=== PATIENT | male | born 1955 | race Caucasian/White ===

== ENCOUNTER 2023-02-05 13:32 | Emergency (ER) | payer MEDICAID, SELFPAY ==
[2023-02-05 13:33] VITALS: BP 143/89; PULSE 56; RESP 18; TEMP 36.4; O2SAT 98; BMI 25.5
--- NOTE | 2023-02-05 14:11 | EDS_ITS ---
HPI History of Present Illness Chief Complaint: Abd Pain Narrative Narrative: 67-year-old male here for left-sided abdominal pain. The patient states he has had 2 days of left lower quad abdominal pain that is nonradiating. Denies any flank pain. Denies urinary complaints. Denies any diarrhea. Denies fever or vomiting. Denies history abdominal surgeries. Notes history hypertension. Denies chest pain or shortness of breath PFSH [facility] Medical History (Updated 02/05/23 @ 15:[address] Mohsen Mahoney, DO) Hypertension Home Medications Bp Med 10/18/13 [History Last Taken Unknown] Cholesterol Med 10/18/13 [History Last Taken Unknown] Gout 10/18/13 [History Last Taken Unknown] famotidine 20 mg tablet 20 mg PO BID ##6 10/18/13 [Rx Last Taken Unknown] amoxicillin 500 mg capsule 500 mg PO Q8H ##30 08/02/14 [Rx Last Taken Unknown] hydrocodone-acetaminophen 5-325mg 5mg-325mg 1 - 2 tab PO Q4H PRN PRN Pain ##12 11/02/14 [Rx Last Taken Unknown] naproxen 500 mg tablet 500 mg PO BID #20 tabs 11/02/14 [Rx Last Taken Unknown] Allergy/AdvReac Type Severity Reaction Status Date / Time No Known Allergies Allergy Verified 11/02/14 17:06 Surgical History no surgical history Social History Smoking Status: Never smoker ROS ROS ED ROS Narrative Constitutional: Denies fever HEENT: Denies sore throat Neck: Denies neck pain Cardiovascular: Denies chest pain, syncope Respiratory: Denies shortness of breath GI: Endorses abdominal pain : Denies changes in urinary habits Musculoskeletal: Denies muscle or joint pain Neurologic: Denies numbness weakness or loss of sensation Skin denies rash EXAM Physical Exam Narrative Exam Narrative: Nursing triage notes reviewed, Vital signs reviewed Constitutional: please see mdm HENT: MMM Eyes: Pupils equal round and reactive to light, Extraocular muscles intact Neck: No stridor, no JVD, full neck ROM Lungs: Clear to auscultation, No wheezing or rales. No increased work of breathing, no conversational dyspnea, no accessory muscle use, no nasal flaring. No respiratory distress noted Heart: Regular rate and rhythm, No murmurs, No rubs and No gallops, 2+ distal pulses (radial, femoral, posterior tibial) in all extremities Abdomen: Soft, left lower quadrant TTP but no rigidity, rebound or guarding, no obvious peritoneal signs, no palpable pulsatile abdominal masses, no auscultated abdominal bruit : No CVAT Extremities: No edema Neuro: No focal neurological deficits, cranial nerves II through XII intact, 5/5 strength in all extremities. Intact sensation to light touch in all extremities, 2+ reflexes bilateral patella dens. Normal gait. No ataxia. Skin: No rash or lesions noted Const Vital Signs: 02/05/23 13:33 Temperature 97.6 F L Temperature Source Temporal Pulse Rate 56 L Respiratory Rate 18 Blood Pressure 143/89 H Blood Pressure Mean 107 Pulse Ox 98 Oxygen Delivery Method Room Air MDM MDM MDM Narrative Medical decision making narrative: Chief Complaint: Abdominal pain External records reviewed: No recent CT scans abdomen pelvis noted MDM: The patient was hemodynamically stable, afebrile, nontoxic-appearing. Abdominal exam with left lower quadrant pain. I considered the following differential diagnosis: Acute surgical pathology of the abdomen or pelvis, diverticulitis, pancreatitis, hepatobiliary pathology, gastritis, diverticulitis, AAA, nephrolithiasis, pyelonephritis I obtained a broad lab and imaging work-up to further elucidate etiology patient complaint. He was treated with IV morphine, Toradol for pain. Given IV fluids for rehydration and given Zofran for nausea. Labs with evidence of leukocytosis suggestive of systemic inflammation, no evidence of endorgan hypoperfusion, electrolyte abnormalities, pancreatitis or hepatobiliary pathology. Factors affecting care: GERD Social determinants of health: History obtained from others: Shared decision making: I will have a discussion with the patient and or visitors regarding risk/benefits of further testing or admission. They will be made aware of of the risk/benefits inherent in this decision they will be given the opportunity to voice understanding. Consults: Lab Data Attestation: I reviewed the patient's lab results. Lab results narrative: CBC with leukocytosis suggestive of systemic inflammation, no thrombocytopenia BMP with mild hyponatremia, no significant electrolyte abnormalities, no anion gap to suggest endorgan hypoperfusion, no acute kidney injury LFTs show mild hyperbilirubinemia otherwise no evidence of obstructive hepatobiliary pathology Lipase is wnl indicating no pancreatic inflammation. Urine without evidence of infection Labs: Laboratory Results - last 24 hr 02/05/23 02/05/23 02/05/23 14:05 14:05 14:05 WBC 15.0 H RBC 5.11 Hgb 16.7 H Hct 49.6 MCV 97.1 H MCH 32.7 H MCHC 33.7 RDW Std Deviation 49.2 H RDW Coeff of Sky 13.7 Plt Count 194 MPV 10.6 Immature Gran % (Auto) 0.500 Neut % (Auto) 77.0 H Lymph % (Auto) 9.7 L [place] % (Auto) 11.3 H Eos % (Auto) 1.1 Baso % (Auto) 0.4 Absolute Neuts (auto) 11.6 H Absolute Lymphs (auto) 1.45 Nucleated RBC % 0 Platelet Estimate ADEQUATE RBC Morphology NORM C+C Sodium 135 L Potassium 3.6 Chloride 101 Carbon Dioxide 30.0 Anion Gap 4 L BUN 21 H Creatinine 1.24 Estim Creat Clear Calc 48.41 Est GFR (MDRD) Af Amer 75 Est GFR (MDRD) Non-Af 62 BUN/Creatinine Ratio 16.9 Glucose 91 Calcium 10.0 Total Bilirubin 1.20 H AST 21 ALT 31 Alkaline Phosphatase 67 Total Protein 7.9 Albumin 3.9 Globulin 4.0 Albumin/Globulin Ratio 1.0 Lipase 36 Urine Color Urine Clarity Urine pH Ur Specific [place] Urine Protein Urine Glucose (UA) Urine Ketones Urine Occult Blood Urine Nitrite Urine Bilirubin Urine Urobilinogen Ur Leukocyte Esterase Urine RBC Urine WBC Ur Squamous Epith Cells Urine Bacteria Urine Mucus 02/05/23 14:13 WBC RBC Hgb Hct MCV MCH MCHC RDW Std Deviation RDW Coeff of Sky Plt Count MPV Immature Gran % (Auto) Neut % (Auto) Lymph % (Auto) [place] % (Auto) Eos % (Auto) Baso % (Auto) Absolute Neuts (auto) Absolute Lymphs (auto) Nucleated RBC % Platelet Estimate RBC Morphology Sodium Potassium Chloride Carbon Dioxide Anion Gap BUN Creatinine Estim Creat Clear Calc Est GFR (MDRD) Af Amer Est GFR (MDRD) Non-Af BUN/Creatinine Ratio Glucose Calcium Total Bilirubin AST ALT Alkaline Phosphatase Total Protein Albumin Globulin Albumin/Globulin Ratio Lipase Urine Color Yellow Urine Clarity Clear Urine pH 7.0 Ur Specific [place] 1.010 Urine Protein 30 H Urine Glucose (UA) Normal Urine Ketones Negative Urine Occult Blood Negative Urine Nitrite Negative Urine Bilirubin Negative Urine Urobilinogen 1 H Ur Leukocyte Esterase 25 H Urine RBC 0 SEEN Urine WBC 5-10 SEEN Ur Squamous Epith Cells 0 SEEN Urine Bacteria 0 SEEN Urine Mucus 0 SEEN Discharge Plan Triage Chief Complaint: Abd Pain ED Provider: Mohsen Mahoney Dx/Rx/DC Orders Clinical Impression: Abdominal pain, Acute hyponatremia, Hyperbilirubinemia Prescriptions: No Action Bp Med Cholesterol Med Gout famotidine 20 MG tablet 20 mg PO BID Qty: 6 0RF amoxicillin 500 MG capsule 500 mg PO Q8H Qty: 30 0RF hydrocodone-acetaminophen 1 TABLET tablet 1 - 2 tab PO Q4H PRN PRN (Reason: Pain) Qty: 12 0RF naproxen 500 MG tablet 500 mg PO BID Qty: 20 0RF Primary Care Provider: Care Physician,No Primary Referrals: Care Physician,No Primary [Primary Care Provider] -
[2023-02-05 14:13] LABS: Absolute Lymphocyte Count 1.45 X10^3/uL (0.83-4.51); Absolute Neutrophil Count 11.6 X10^3/uL (2.0-7.7); Basophil# 0.06 X10^3/uL; Basophil% 0.4 % (0-1); Eosinophil# 0.16 X10^3/uL; Eosinophils% 1.1 % (0-5); Hematocrit 49.6 % (40-54); Hemoglobin 16.7 g/dL (13.0-16.5); Lymphocyte # 1.45 X10^3/ul (0.83-4.51); Lymphocyte % 9.7 % (19-41); Mean Corp Hgb Conc 33.7 g/dL (32-36); Mean Corpuscular Hgb 32.7 pg (27.0-32.0); Mean Corpuscular Volume 97.1 fL (80-94); Mean Platelet Vol. 10.6 fl (6.2-12.0); Monocyte% 11.3 % (0-10); NRBC Flagged by Analyzer 0 % (0-5); Neutrophil # 11.58 X10^3/uL (2.7-7.7); POSITIVE DIFFERENTIAL YES; Platelet Count 194 K/mm3 (150-450); RBC Distribution Width CV 13.7 % (11.6-14.6); RBC Distribution Width SD 49.2 fl (35.1-43.9); Red Blood Count 5.11 M/mm3 (4.6-6.2)
[2023-02-05 14:14] LABS: Differential Indicated SCAN CRITERIA MET
[2023-02-05 14:24] LABS: Bacteria 0 SEEN /hpf (None Seen); Mucous, Urine 0 SEEN /hpf (<or=2+); Red Blood Cells-Urine 0 SEEN /hpf (0-5); Squamous Epithelial Cells - UA 0 SEEN /hpf (0-5)
[2023-02-05 14:26] LABS: Color, Urine Yellow (Yellow); Glucose, Dipstick Normal (Normal); Ketone-Dipstick Negative (Negative); Leukocyte Esterase-Dipstick 25 /ul (Negative); Nitrite-Dipstick Negative (Negative); Occult Blood-Urine Negative /ul (Negative); Protein-Dipstick 30 mg/dl (Negative); Urine Bilirubin Dipstick Negative (Negative); Urine Clarity Clear (Clear); Urine Urobilinogen 1 mg/dl (Normal)
[2023-02-05 14:29] LABS: White Blood Cells 5-10 SEEN /hpf (0-5)
[2023-02-05 14:29] LABS: AST(SGOT) 21 U/L (15-37); Alanine Aminotransfer ALT/SGPT 31 U/L (16-61); Albumin, Serum 3.9 g/dL (3.2-5.0); Alkaline Phosphatase 67 U/L (45-117); Anion Gap 4 (5-15); BUN 21 mg/dL (7-18); BUN/Creat Ratio 16.9 RATIO (10-20); Chloride 101 mmol/L (98-107); Creatinine, Serum 1.24 mg/dL (0.70-1.30); EST Glomerular Filtration Rate 62 mL/min (>60); Est Glom Filt Rate - Afr Amer 75 mL/min (>60); Estimated Creatinine Clearance 48.41 ml/min; Glucose 91 mg/dL (74-106); Potassium 3.6 mmol/L (3.5-5.1); Protein, Total 7.9 g/dL (6.4-8.2); Sodium Level 135 mmol/L (136-145)
--- NOTE | 2023-02-05 14:33 | CT_ITS ---
INDICATION: Left lower quadrant abdominal pain -- IV PO Contrast EXAMINATION: CT Abdomen And Pelvis W/ Contrast Injection TECHNIQUE: Helically acquired images were obtained of the abdomen and pelvis after IV contrast. A radiation dose optimization technique was used for this scan. IV Contrast dosage and agent: Oral and amp; IV Gastrografin and amp; 100mL Isovue-300 Oral contrast: None. COMPARISON: None. FINDINGS: Visualized lung bases: Unremarkable Liver: Unremarkable Gallbladder: Few small intraluminal stones seen. Spleen: Unremarkable Pancreas: Unremarkable Adrenal Glands: Unremarkable Kidneys: Multiple bilateral simple renal cysts, largest measuring 5.8 cm in the right mid renal pole. No follow-up necessary. Vasculature: Moderate aortoiliac atherosclerotic disease. GI Tract: Short segment slightly asymmetric bowel wall thickening of the proximal sigmoid colon with surrounding mesenteric fat stranding. Lymphadenopathy: None Peritoneum: No ascites. Bladder: Unremarkable Reproductive organs: The prostate is mildly enlarged. Bones/Soft tissues: There are diffuse degenerative changes of the spine. CT/Abdomen/Pelvis WITH Contrast IMPRESSION: Acute sigmoid diverticulitis. No focal fluid collection or free air. Due to slight asymmetry of wall thickening, recommend colonoscopy after acute infection has resolved to rule out underlying malignancy. Mild prostatomegaly. Correlate with PSA levels. Cholelithiasis. Electronically Signed: Devonte Andres MD at 17:01 EDT ,
[2023-02-05 14:53] LABS: Platelet Estimate ADEQUATE (ADEQ); Red Cell Morphology NORM C+C NORMAL (NORM C&C)
[2023-02-05 15:05] LABS: Lipase 36 U/L (13-75)
[2023-02-05] MEDS: Morphine 4 MG/ML Syringe IV (15:55)
[2023-02-05] MEDS: Ketorolac 15 MG/ML Vial IV (15:55)
[2023-02-05] MEDS: Ondansetron 4 MG/2 ML Vial IV (15:55)
[2023-02-05] MEDS: 0.9% Normal Saline 1,000 ML 999 ML IV (15:56)
[2023-02-05] MEDS: Amox/Clavulanate 875 MG Tablet PO (17:14)
[2023-02-05 17:31] VITALS: BP 139/58; PULSE 59; RESP 16; O2SAT 98
[2023-02-08 11:56] LABS: Pathologist Review Reviewed
== END 2023-02-05 17:33 | disposition home or self-care (01) ==
PROVIDERS: Emergency Provider Emergency Medicine; Referring Provider Emergency Medicine; Visit Provider Emergency Medicine
DX: R10.9 Unspecified abdominal pain (principal); E87.1 Hypo-osmolality and hyponatremia; K21.9 Gastro-esophageal reflux disease without esophagitis; E80.6 Other disorders of bilirubin metabolism; I10 Essential (primary) hypertension
CPT/HCPCS: 74177; 80053; 81001; 83690; 85025; 99283; Q9967; J2405

== ENCOUNTER 2023-04-08 13:35 | Emergency (ER) | payer MEDICAID, SELFPAY ==
[2023-04-08 13:36] VITALS: BP 171/100; PULSE 55; RESP 18; TEMP 36.6; O2SAT 98; BMI 25.9
--- NOTE | 2023-04-08 13:51 | ED.VIS.CHEST ---
HPI History of Present Illness Chief Complaint: Chest Pain Detail of Chief Complaint: Initially right lower back pain and anterior right chest pain. Presently a Informant: patient Onset/Context/Timing Onset: Yesterday Timing: Continuous Quality: Positive for Pain Location: Right Parasternal Current Severity: Mild Maximum Severity: Moderate Worsened By: Nothing Relieved By: Nothing Associated Symptoms: Negative for Nausea, Vomiting, Diaphoresis, Dyspnea, Cough, Fever, Lightheadedness, Acid Reflux or Palpitations Narrative Narrative: Patient is a 67-year-old male with history of hypertension, hypercholesterolemia and based on medication GERD/peptic ulcer disease who presents with right-sided chest pain. Patient is a poor informant because he has a limited vocabulary and does not understand the meaning of many words that were asked. For example when asked to describe the pain using adjectives or descriptive words he looked at me and responded I am from [place] . Patient states she was seen 4 months ago for left lower quadrant pain and was told he was hooked up to a machine and then let go. He questioned why the nurse was placing him on a monitor. Prior Similar Symptoms: No CVD Risk Factors: Positive for Hypertension and Hypercholesterolemia; Negative for Diabetes or Family History 1' </=55 (His response to family history of cardiac disease was I am from [place] .) PE Risk Factors: Negative for Recent Travel/Surgery, Recent Immobilization, Prior DVT or PE, Cancer, OCP + Smoking + >/=35 or - TAD Risk Factors: Positive for Hypertension; Negative for Marfan's Syndrome or Family History [facility] Medical History (Updated 04/08/23 @ 15:[address] Jamie Magana MD) HLD (hyperlipidemia) Hypertension Home Medications Bp Med 10/18/13 [History Last Taken Unknown] Cholesterol Med 10/18/13 [History Last Taken Unknown] Gout 10/18/13 [History Last Taken Unknown] famotidine 20 mg tablet 20 mg PO BID ##6 10/18/13 [Rx Last Taken Unknown] amoxicillin 500 mg capsule 500 mg PO Q8H ##30 08/02/14 [Rx Last Taken Unknown] hydrocodone-acetaminophen 5-325mg 5mg-325mg 1 - 2 tab PO Q4H PRN PRN Pain ##12 11/02/14 [Rx Last Taken Unknown] naproxen 500 mg tablet 500 mg PO BID #20 tabs 01/16/15 [Rx Last Taken Unknown] amoxicillin 875 mg-potassium clavulanate 125 mg tablet 1 tab PO BID 7 days #14 tabs 02/05/23 [Rx Last Taken Unknown] Allergy/AdvReac Type Severity Reaction Status Date / Time No Known Allergies Allergy Verified 11/02/14 17:06 Social History (Updated 04/08/23 @ 13:[address] Jamie Magana MD) household members: none Smoking Status: Never smoker substance use type: does not use ROS ROS ED Constitutional Constitutional ED: Denies chills or fever(s) Eyes Eyes: Reports none ENT ENT ED: Reports rhinorrhea; Denies sore throat Cardiovascular Cardiovascular: Reports as per HPI; Denies orthopnea or paroxysmal nocturnal dyspnea Respiratory/Chest Respiratory/Chest: Reports cough; Denies dyspnea, dyspnea on exertion, orthopnea or paroxysmal nocturnal dyspnea Gastrointestinal Gastrointestinal: Denies abdominal pain, melena, nausea, vomiting or other Musculoskeletal Musculoskeletal: Reports back pain; Denies arthralgias, myalgias or neck pain Integumentary Denies rash Neurologic Neurologic: Denies paresthesias Hematologic/Lymphatic Hematologic/Lymphatic: Denies easy bleeding or easy bruising EXAM Physical Exam Const Vital Signs: 04/08/23 13:36 04/08/23 13:57 04/08/23 13:57 Temperature 97.8 F Temperature Source Temporal Pulse Rate 55 L 52 L Respiratory Rate 18 14 Respiratory Effort Normal Non-Labored Blood Pressure 171/100 H 173/94 H Blood Pressure Mean 123 120 Pulse Ox 98 97 Oxygen Delivery Method Room Air Room Air Positive well nourished, well developed and unkempt; Negative for obese, cachectic or contractures General Appearance ED: unkempt and well developed; Negative for cachectic, contractures or pallor Nutritional Appearance: Negative for cachectic or obese HEENT Reports TM's clear and moist mucous membranes normocephalic and atraumatic Tympanic Membrane ED: Yes TM's clear Eyes PERRL and EOMs intact bilaterally General Eye ED: Negative for pale conjunctiva or scleral icterus Neck no lymphadenopathy, supple and no JVD Chest Wall inspection of chest normal and palpation of chest normal Resp normal respiratory effort and clear to auscultation bilaterally Resp Narrative: There is no pain palpation of the chest. Cardio regular rate, regular rhythm, S1 normal heart sound, S2 normal heart sound and no murmurs GI normal to inspection, nondistended, normoactive bowel sounds, soft to palpation, non-tender, non-distended and no masses; Negative for hepatosplenomegaly Back/Spine no CVA tenderness Extremity normal to inspection General Extremety ED: Negative for edema or pulses abnormal General Extremity: Negative for edema or pulses abnormal Neuro oriented x3, CN's II-XII intact bilaterally and no sensory deficits noted Sensorium / Orientation: awake and alert Motor Exam: strength 5/5 throughout Psych mental status grossly normal Appearance: unkempt Skin no rashes or lesions noted and no wounds General Skin Exam: Negative for jaundice or pallor MDM MDM MDM Narrative Medical decision making narrative: Since patient has 2 risk factors of cardiac disease and is a poor informant because of issues with literacy will obtain EKG, chest x-ray and troponin to determine if this is cardiac or noncardiac pain and will obtain a CBC but since he appears pale to rule out anemia. With a nonischemic EKG and normal troponin with greater than 24 hours of pain cardiac etiology has been ruled out. Lab Data Attestation: I reviewed the patient's lab results. Lab results narrative: CBC is unremarkable. Troponin is normal with greater than 24 hours of pain. Labs: Laboratory Results - last 24 hr 04/08/23 04/08/23 14:01 14:01 WBC 8.2 RBC 5.00 Hgb 16.4 Hct 47.1 MCV 94.2 H MCH 32.8 H MCHC 34.8 RDW Std Deviation 45.1 H RDW Coeff of Sky 13.2 Plt Count 215 MPV 10.5 Troponin I High Sens 16 Radiography Chest X-Ray - ED: 2 View and Read by ED Physician (2 view chest x-ray revealed no acute process per per my independent read. Cardiac silhouette and size normal. Perihilar region normal. Lung parenchyma normal. Osseous structures are unremarkable.) Diagnostic Testing: Clinical Impression(s) from Imaging Studies Chest X-Ray 04/08/23 14:20 IMPRESSION: There are no acute findings. Electronically Signed: Franklin Cooper MD at 14:55 EDT , EKG Initial EKG: Attestation: I personally reviewed and interpreted this EKG as follows: Interpretation: Sinus Bradycardia (Rate is 49. MI interval is 198 ms per cures duration 98 ms. QT duration 470 ms. Gates is normal. The EKG is suggestive of LVH otherwise unremarkable.) Differential Diagnosis Chest pain/SOB: pulmonary embolism Reason(s) PE less likely: Positive for not tachycardic, not hypoxic and Other (Clinical presentations not consistent with PE), ACS ACS: Positive for no evidence of ACS based on cardiac biomarkers, EKG without ischemia and history not suggestive of ischemia pain, pneumothorax Reason(s) pneumothorax less likely: Positive for bilateral breath sounds and [employer] withhout PTX, pneumonia Reason(s) pneumonia less likely: Positive for no infiltrate on CXR, no noted fever and symptoms not consistent with acute infection and aortic dissection Reason(s) Aortic dissection less likely:: Positive for normal vascular exam, no history of HTN, normal neurological exam, no significant risk factors for dissection, no widened mediastinum on CXR, pain not sudden onset, no ripping/tearing pain and blood pressure appropriate in ED; Negative for no pain to back Discharge Plan Triage Chief Complaint: Chest Pain ED Provider: Jamie Magana Dx/Rx/DC Orders Clinical Impression: Right-sided chest pain Instructions: ED Chest Pain, Noncardiac Prescriptions: No Action Bp Med Cholesterol Med Gout famotidine 20 MG tablet 20 mg PO BID Qty: 6 0RF amoxicillin 500 MG capsule 500 mg PO Q8H Qty: 30 0RF hydrocodone-acetaminophen 1 TABLET tablet 1 - 2 tab PO Q4H PRN PRN (Reason: Pain) Qty: 12 0RF naproxen 500 MG tablet 500 mg PO BID Qty: 20 0RF amoxicillin-pot clavulanate 875-125 mg tablet 1 tab PO BID 7 Days Qty: 14 0RF Primary Care Provider: Care Physician,No Primary Referrals: Samantha Joy [Non-Staff] - 3-5 Days if not improving Care Physician,No Primary [Primary Care Provider] - Disposition Disposition: Home, Self Care
[2023-04-08 13:57] VITALS: BP 173/94; PULSE 52; RESP 14; O2SAT 97
--- NOTE | 2023-04-08 14:20 | RAD_ITS ---
STUDY: XR Chest 2 Views 04/08/2023 2:19 PM REASON FOR EXAM: Male, 67 years old. CHEST PAIN Right-sided chest pain and chronic cough COMPARISON: None TECHNIQUE: XR Chest 2 Views FINDINGS: There is no demonstrated pleural abnormality. Normal heart size. Normal mediastinum. Normal maurilio. Prominent appearing increased interstitial lung markings. Normal visualized pulmonary arteries. There is atherosclerotic calcification of the aortic arch with tortuosity. There are diffuse degenerative changes of the visualized thoracic spine. There is degenerative osteoarthritis of the bilateral shoulders. There is no demonstrated abnormality of the visualized soft tissue structures of the upper abdomen. RAD/Chest PA and Lateral IMPRESSION: There are no acute findings. Electronically Signed: Franklin Cooper MD at 14:55 EDT ,
[2023-04-08 14:22] LABS: Hematocrit 47.1 % (40-54); Hemoglobin 16.4 g/dL (13.0-16.5); Mean Corp Hgb Conc 34.8 g/dL (32-36); Mean Corpuscular Hgb 32.8 pg (27.0-32.0); Mean Corpuscular Volume 94.2 fL (80-94); Mean Platelet Vol. 10.5 fl (6.2-12.0); Platelet Count 215 K/mm3 (150-450); RBC Distribution Width CV 13.2 % (11.6-14.6); RBC Distribution Width SD 45.1 fl (35.1-43.9); White Blood Count 8.2 K/mm3 (4.4-11.0)
[2023-04-08 14:39] LABS: Troponin-I HS 16 pg/mL (3.0-78.0)
[2023-04-08 16:16] VITALS: BP 189/99; PULSE 54; RESP 16; O2SAT 97
== END 2023-04-08 16:17 | disposition home or self-care (01) ==
PROVIDERS: Emergency Provider Emergency Medicine; Visit Provider Emergency Medicine
DX: R07.89 Other chest pain (principal); I10 Essential (primary) hypertension; E78.00 Pure hypercholesterolemia, unspecified; K21.9 Gastro-esophageal reflux disease without esophagitis; Z79.899 Other long term (current) drug therapy
CPT/HCPCS: 71046; 84484; 85027; 93005; 99284